=== PATIENT | male | born 1945 | race Caucasian/White ===

== ENCOUNTER → 2017-03-17 | Outpatient (CLI) | payer MEDICARE, BC ==
[~2017-03-17] MED LIST: ASPI-664 PO; ATOR80TA75 PO; LOSA25TA5 PO; METO25TA7 PO; OMEG-135 PO; PRAS10TA6 PO; [UNRECOGNIZED DRUG - OTHER] PO
--- NOTE | 2017-03-17 15:40 | RADRPT ---
PROCEDURE: XR pelvis/right hip. CLINICAL INDICATION: Hip pain TECHNIQUE: AP pelvis/AP and lateral right hip view performed COMPARISON: No prior studies are available for comparison. FINDINGS: There is severe right hip osteoarthrosis and moderate to severe left hip osteoarthrosis. This is ass ociated with joint space narrowing, subchondral sclerosis , subchondral cyst formation and osteophyt osis. There is normal mineralization. No fractures or osseous lesions are identified. The soft ti ssues are unremarkable. IMPRESSION: Severe right hip osteoarthrosis. Moderate to severe left hip osteoarthrosis RPTAT: [facility] .Paulino Beverly MD, Date Time Electronically viewed and signed by .Paulino Beverly MD, on 03/17/2017 15:40 .B/
== END | disposition home or self-care (01) ==
LOC: HKI 15:27
PROVIDERS: ATTEND Orthopaedic Surgery
DX: M25.551 Pain in right hip (principal); M16.11 Unilateral primary osteoarthritis, right hip
CPT/HCPCS: 73502; G0463

== ENCOUNTER → 2017-05-23 | Outpatient (CLI) | payer MEDICARE, BC | END | disposition home or self-care (01) | LOC: HKI 09:56 | PROVIDERS: ATTEND Orthopaedic Surgery | DX: M16.11 Unilateral primary osteoarthritis, right hip (principal); I10 Essential (primary) hypertension; E78.00 Pure hypercholesterolemia, unspecified; Z85.038 Personal history of other malignant neoplasm of large intestine | CPT/HCPCS: G0463 ==